=== PATIENT | female | born 1990 | race Caucasian/White ===

== ENCOUNTER → 2017-09-03 | Outpatient (REF) | LOC: WSPT 09:00 | DX: Z02.1 Encounter for pre-employment examination (principal) ==

== ENCOUNTER → 2018-05-18 | Outpatient (CLI) | payer OTHER ==
[2018-05-18 12:58] LABS: INFLUENZA A NEGATIVE; INFLUENZA B NEGATIVE
== END ==
LOC: COL.LAB 12:15
PROVIDERS: Family Medicine
DX: Z11.59 Encounter for screening for other viral diseases (principal)